=== PATIENT | male | born 2000 | race Two or more races ===

== ENCOUNTER 2019-06-11 23:51 | Emergency (ER) | payer MEDICAID, OTHER ==
[2019-06-12 00:05] VITALS: BP 154/89
[2019-06-12] MEDS ORDERED: CHERRY SYRUP 10 ML UDC PO ONE (01:01)
[2019-06-12] MEDS ORDERED: DEXAMETHASONE 10 MG/ML VIAL PO STA (01:01)
[2019-06-12] MEDS ORDERED: AMOX/CLAV 875 MG/125 MG TABLET PO STA (01:02)
--- NOTE | 2019-06-12 01:04 | ED Physician Documentation ---
PD HPI HEENT - Stated complaint Stated Complaint: SOA/TIGHT CHEST - Chief complaint Chief Complaint: Resp - History obtained from History obtained from: Patient - History of Present Illness Timing - onset: Today Timing - duration: Hours Timing - details: Gradual onset, Still present Location: Nose, Throat Worsens: Sw[place]ing Associated symptoms: Fever, Congestion, Headache. No: Cough Similar symptoms before: Has not had sx before Recently seen: Not recently seen - Additional information Additional information: 19-year-old male who works at [employer] came home from work today and took a nap as he usually does when he woke up from his nap he had shaking chills and a fever. He notes that last week he had a sore throat for about a week and this seems to have resolved. He denies any ear pain he does acknowledge nasal congestion. He has not had cough he has not had vomiting. Review of Systems Constitutional: reports: Fever, Chills, Myalgias, Fatigue Eyes: denies: Decreased vision Ears: denies: Ear pain Nose: reports: Rhinorrhea / runny nose, Congestion Throat: reports: Sore throat Cardiac: denies: Chest pain / pressure, Palpitations Respiratory: denies: Dyspnea, Cough GI: denies: Vomiting PD PAST MEDICAL HISTORY - Past Medical History Past Medical History: Yes Cardiovascular: Hypertension Respiratory: Sleep apnea Endocrine/Autoimmune: None GI: None : None Psych: None Musculoskeletal: Other Derm: Psoriasis Other Past Medical History: tendonitis to bilat shoulder; dislocated right hip; - Past Surgical History Past Surgical History: No - Present Medications Home Medications: Ambulatory Orders Medication Instructions Recorded Confirmed Amox/Clav 875/125 [Augmentin] 1 each PO Q12H #20 tablet 06/12/19 - Allergies Allergies/Adverse Reactions: Allergies Allergy/AdvReac Type Severity Reaction Status Date / Time No Known Drug Allergies Allergy Verified 06/11/19 23:55 - Social History Does the pt smoke?: Yes Smoking Status: Current some day smoker Does the pt drink ETOH?: Yes Does the pt have substance abuse?: No - Immunizations Immunizations are current?: Yes - POLST Patient has POLST: No PD ED PE NORMAL - Vitals Vital signs reviewed: Yes (tachy and hypertensive ) - General General: Alert and oriented X 3, No acute distress, Well developed/nourished, Other (warm to the touch) - HEENT HEENT: Atraumatic, PERRL, EOMI, Moist mucous membranes, Pharynx benign, Dentit ion benign, Other (The left TM is inflamed with flattening of the landmarks. 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, No motor deficit, No sensory deficit, Normal speech Eye Opening: Spontaneous Motor: Obeys Commands Verbal: Oriented GCS Score: 15 - Psych Psych: Normal mood, Normal affect Results - Vitals Vitals: Vital Signs - 24 hr 06/11/19 23:55 Temperature 37.1 C Heart Rate 108 H Respiratory 14 Rate Blood Pressure 154/89 H O2 Saturation 98 Oxygen O2 Source Room air PD MEDICAL DECISION MAKING - ED course Complexity details: reviewed results, re-evaluated patient, considered differential, d/w patient, d/w family ED course: 19-year-old male who works for [employer] has awakened from a nap this afternoon with shaking chills and fever and he does have aches in all places where he has been injured before he does feel warm to the touch and he has otitis on exam. He is administered Dexamethasone 10 mg orally and Augmentin 875. Departure - Departure Disposition: 01 Home, Self Care Clinical Impression: Otitis media Qualifiers: Otitis media type: suppurative Chronicity: acute Laterality: left Recurrence: non-recurrent Spontaneous tympanic membrane rupture: without spontaneous rupture Qualified Code(s): H66.002 - Acute suppurative otitis media without spontaneous rupture of ear drum, left ear Condition: Stable Instructions: ED Otitis Media Acute Adult Follow-Up: ADRIANA SEGURA [Primary Care Provider] - Prescriptions: Amox/Clav 875/125 [Augmentin] 1 each PO Q12H #20 tablet Forms: Activity restrictions
== END 2019-06-12 01:12 | disposition home or self-care (01) ==
LOC: ED 23:51
DX: H66.002 Acute suppurative otitis media without spontaneous rupture of ear drum, left ear (principal); I10 Essential (primary) hypertension; F17.200 Nicotine dependence, unspecified, uncomplicated
CPT/HCPCS: 99282; 99284; A9270

== ENCOUNTER 2023-11-15 10:27 | Emergency (ER) | payer OTHER ==
--- NOTE | 2023-11-15 11:11 | ED Physician Documentation ---
PD HPI LOWER EXT INJURY - Stated complaint Stated Complaint: RT LEG PX - Chief complaint Chief Complaint: Trauma Ext - History obtained from History obtained from: Patient - Additional information Additional information: Patient is a 23-year-old male with no significant past medical history presenting for evaluation of right hip pain since last night. Patient works at [employer] and was on one of the wood wraps about to get on one of the boats. He states he slipped and fell onto the raft landing on his right hip. He did not hit his head. He reports pain with walking. He also reports hitting his kelly but that does not really cause any discomfort today. Does not take any blood thinners. Review of Systems Cardiac: denies: Chest pain / pressure Respiratory: denies: Dyspnea Musculoskeletal: reports: Joint pain Neurologic: denies: Head injury PD PAST MEDICAL HISTORY - Past Medical History Past Medical History: Yes Cardiovascular: Hypertension Respiratory: Sleep apnea Endocrine/Autoimmune: None GI: None : None Psych: None Musculoskeletal: Other Derm: Psoriasis - Past Surgical History Past Surgical History: No - Present Medications Home Medications: Ambulatory Orders Medication Instructions Recorded Confirmed No Known Home Medications 11/15/23 11/15/23 - Allergies Allergies/Adverse Reactions: Allergies Allergy/AdvReac Type Severity Reaction Status Date / Time No Known Drug Allergies Allergy Verified 11/15/23 10:35 - Social History Does the pt smoke?: Yes Smoking Status: Current every day smoker Does the pt drink ETOH?: Yes Does the pt have substance abuse?: No - Immunizations Immunizations are current?: Yes - POLST Patient has POLST: No PD ED PE NORMAL - General General: Alert and oriented X 3, No acute distress, Well developed/nourished - HEENT HEENT: Atraumatic, Moist mucous membranes, Pharynx benign - Neck Neck: Supple, no meningeal sign, No bony TTP - Cardiac Cardiac: Strong equal pulses - Respiratory Respiratory: No respiratory distress - Extremities Extremities: No deformity, Other (Reports mild pain on range of motion of right hip, Able to ambulate) - Neuro Neuro: No motor deficit, No sensory deficit PD ED PE EXPANDED - Back Back visual: 1 - tenderness Results - Vitals Vitals: Vital Signs - 24 hr 11/15/23 11/15/23 10:32 12:15 Temperature 36.4 C L 36.5 C Heart Rate 68 62 Respiratory 14 15 Rate Blood Pressure 137/67 H 133/65 H O2 Saturation 97 98 Oxygen O2 Source Room air PD Medical Decision Making - ED course Complexity details: reviewed results, re-evaluated patient, d/w patient ED course: Patient with right hip pain after fall yesterday at work. Patient is ambulatory. Neurovascularly intact. No head injury. X-ray was obtained of the right hip which I reviewed I see no fracture or dislocation. As he is ambulatory feel that an occult fracture is less likely. Discussed continued supportive care as well as Need for follow-up if symptoms or not improving and concerning symptoms to return for. Departure - Departure Disposition: 01 Home, Self Care Clinical Impression: Injury of right hip Condition: Stable Instructions: ED Sprain Hip Comments: Your x-ray does not show a broken or out of place bone in regards to your hip injury. It is likely a muscle strain or bruise related to your fall. Please continue with lidocaine patches and anti-inflammatories such as acetaminophen or ibuprofen along with ice and limiting movements that worsen the pain. Please follow-up with your primary care doctor if your symptoms or not getting better over the course of the next week. Return to the emergency department with any worsening symptoms. Forms: PCP List, Activity restrictions Discharge Date/Time: 11/15/23 12:15
--- NOTE | 2023-11-15 11:48 | XRAY Report ---
PROCEDURE: Hip w/Pelvis 2-3V RT INDICATIONS: fall/pain TECHNIQUE: 2 views of the hip were acquired. COMPARISON: None. FINDINGS: Bones: No fractures or dislocations. No suspicious bony lesions. Soft tissues: No suspicious soft tissue calcifications or masses. IMPRESSION: No acute fracture. No osseous lesion. If symptoms and/or clinical suspicion for pathology continue, f urther assessment with repeat plain films, or advanced imaging (e.g., CT, MRI, or bone scan) is recom mended for further assessment. Reviewed by: Maria Esther Butcher MD on 11/15/2023 11:46 AM PST Approved by: Maria Esther Butcher MD on 11/15/2023 11:46 AM [facility] Station ID: [id number]
[2023-11-15 12:22] VITALS: BP 133/65; O2SAT 98
== END 2023-11-15 12:15 | disposition home or self-care (01) ==
LOC: ED 10:27
DX: S79.911A Unspecified injury of right hip, initial encounter (principal); W01.0XXA Fall on same level from slipping, tripping and stumbling without subsequent striking against object, initial encounter; Y99.0 Civilian activity done for income or pay; I10 Essential (primary) hypertension; F17.200 Nicotine dependence, unspecified, uncomplicated
CPT/HCPCS: 1040M; 73502; 99283

== ENCOUNTER 2023-12-09 09:30 | Outpatient (CLI) | payer SELFPAY ==
--- NOTE | 2023-12-09 11:54 | XRAY Report ---
PROCEDURE: Knee 3V LT INDICATIONS: BURSITIS, LEFT KNEE TECHNIQUE: 3 views of the knee(s) were acquired. COMPARISON: None. FINDINGS: Bones: No fractures or dislocations. No suspicious bony lesions. No significant degeneration. Soft tissues: No knee joint effusion. No suspicious soft tissue calcifications or masses. IMPRESSION: No acute bony abnormality. If pain persists with conservative management, consider further evaluation with cross-sectional imagi ng such as CT or MRI. Reviewed by: Franny Segovia MD on 12/09/2023 11:53 AM PST Approved by: Franny Segovia MD on 12/09/2023 11:53 AM PST Station ID: [id number]
== END 2023-12-09 09:45 | disposition home or self-care (01) ==
LOC: DI.N 09:30
PROVIDERS: ATTEND Physician Assistant Medical
DX: M70.52 Other bursitis of knee, left knee (principal)